=== PATIENT | female | born 1990 | race Caucasian/White ===

== ENCOUNTER → 2017-05-07 | Outpatient (CLI) | payer OTHER ==
[~2017-05-07] MED LIST: GADOBUTROL 10 ML VIAL IVP ONE; GLUCAGON,HUMAN RECOMBINANT 0.3 MG in SYRINGE 0.3 ML IVP ONE
== END ==
LOC: FIMAGING 08:15
PROVIDERS: ATTEND Internal Medicine Gastroenterology
DX: K52.89 Other specified noninfective gastroenteritis and colitis (principal)
CPT/HCPCS: A9585; J1610

== ENCOUNTER 2018-08-20 18:27 | Emergency (ER) | payer OTHER ==
[2018-08-20] MEDS ORDERED: NS 1,000 ML IV ONE ×2 (18:50→21:15)
[2018-08-20] MEDS ORDERED: ONDANSETRON 4 MG/2 ML VIAL IVP ONE (18:50)
--- NOTE | 2018-08-20 18:53 | EDPHY ---
H & P Smoking Status: Never smoked <PrashantNadrei S - Last Filed: 08/20/18 21:12> <YaneliLisa S - Last Filed: 08/20/18 22:10> Time Seen by Provider: 08/20/18 18:34 HPI/ROS: CHIEF COMPLAINT: Abdominal pelvic pain HISTORY OF PRESENT ILLNESS: Patient has had Crohn's disease since 9 years old. Her last big flare was just over a year ago when she was in [facility], she has since weaned herself off all medications. She feels like this is different than her Crohn's. She had her normal menstrual period yesterday and today, has been feeling more bloated and having more menstrual symptoms over the last couple months. This morning she felt abdominal pain and left side which has persisted. Does not feel crampy and in waves like her typical Crohn's. Not associated with vomiting, she does have about 10-15 episodes today of watery nonbloody diarrhea. She has some nausea. No urinary symptoms. REVIEW OF SYSTEMS: Eye: no change in vision ENT: no sore throat Cardiac: no chest pain or syncope Pulmonary: no cough or SOB Abdomen: HPI Musculoskeletal: no back pain Skin: no rash Neuro: no headache Constitutional: no fever : no urinary symptoms A comprehensive 10 point review of systems is otherwise negative aside from elements mentioned in the history of present illness. PAST MEDICAL HISTORY: Crohn's disease Social history: Here with her mom General Appearance: Alert and conversant, cooperative. Eyes: No scleral icterus. ENT, Mouth: Normal mucous membranes. Respiratory: Normal respiratory effort, breath sounds equal, lungs are clear to auscultation. Cardiovascular: Regular rate and rhythm. Gastrointestinal: Left lower quadrant tenderness greater than right, no rebound or guarding. No liver or right upper quadrant tenderness. Neurological: Alert, face symmetric, normal motor and sensory in extremities. Skin: Warm and dry, no rashes. Musculoskeletal: No peripheral edema. Psychiatric: Not agitated. Emergency Department course/MDM: Differential includes but not limited to appendicitis, ovarian cyst or torsion, UTI, bowel obstruction or Crohn's, infectious diarrhea, GI bleed. Plan for Zofran and IV fluids for nausea. Declined pain medication. Pelvic and appendiceal ultrasound. 1939: Normal WBC and negative test. Signed out to [place] with US pending. (Cerda,Andrei S) Constitutional: Initial Vital Signs Temperature (C) 36.8 C 08/20/18 18:32 Heart Rate 63 08/20/18 18:32 Respiratory Rate 16 08/20/18 18:32 Blood Pressure 124/77 H 08/20/18 18:32 O2 Sat (%) 96 08/20/18 18:32 O2 Delivery Mode Room Air Allergies/Adverse Reactions: cephalexin monohydrate [From Keflex] Allergy (Verified 07/08/13 09:11) codeine Allergy (Verified 07/08/13 09:10) sulfamethoxazole [From Bactrim] Allergy (Verified 08/20/18 18:30) trimethoprim [From Bactrim] Allergy (Verified 08/20/18 18:30) Home Medications: Medication Instructions Recorded Methotrexate 08/20/18 Stelara 08/20/18 Medical Decision Making <Andrei Cerda S - Last Filed: 08/20/18 21:12> - Diagnostics Imaging: Discussed imaging studies w/ pecan mallow dipper Radiologist <Lisa Groves S - Last Filed: 08/20/18 22:10> - Diagnostics Imaging Results: Imaging Impressions Abdomen Ultrasound 08/20/18 18:51 Impression: An abnormal appendix is not visualized. No definite secondary findings are seen to support a clinical diagnosis of acute appendicitis. Results called and discussed with Andrei Cerda M.D., on August 20, 2018 at 2055. Pelvic/Renal Ultrasound 08/20/18 18:51 Impression: Negative pelvic ultrasound with no source for right lower quadrant pain identified. Results called and discussed with Beckie Groves M.D. on 08/20/2018 at 20:55. ED Course/Re-evaluation: 2114: Ultrasound results discussed with the patient. She continues to have crampy be abdominal pain, especially in the left lower quadrant, associated with nausea. Abdominal exam exam reveals left lower quadrant tenderness, without peritoneal signs. I will give her another L of normal saline, Toradol and Phenergan IV. Discussed with patient the risks and benefits of CT scan, pt will defer for now, though she is concerned about the possibility of small- bowel obstruction. 2 way abdominal x-ray ordered. 10pm: feels much better, pain and nausea have resolved. Abd soft, minimal LLQ tenderness, no peritoneal signs. Xray d/w Dr. Lerma, mildly dilated small bowel , no SBO. Results discussed with the patient. Would like to go home. Abdominal pain precautions given. Strongly encouraged return in 12 hr for recheck and probable CT scan if symptoms persist. (Lisa Groves) Differential Diagnosis: Differential diagnosis includes though it is not limited to appendicitis, cholecystitis, diverticulitis, pyelonephritis, bowel perforation, small bowel obstruction. (Lisa Groves) - Data Points Laboratory Results: Laboratory Results 08/20/18 18:58 08/20/18 18:58 08/20/18 08/20/18 08/20/18 19:35 18:58 18:58 WBC RBC Hgb Hct MCV MCH MCHC RDW Plt Count MPV Neut % (Auto) Lymph % (Auto) [place] % (Auto) Eos % (Auto) Baso % (Auto) Nucleat RBC Rel Count Absolute Neuts (auto) Absolute Lymphs (auto) Absolute Monos (auto) Absolute Eos (auto) Absolute Basos (auto) Absolute Nucleated RBC Immature Gran % Immature Gran # Sodium 139 mEq/L mEq/L (135-145) Potassium 3.8 mEq/L mEq/L (3.5-5.2) Chloride 107 mEq/L mEq/L (97-110) Carbon Dioxide 21 mEq/l L mEq/l (22-31) Anion Gap 11 mEq/L mEq/L (6-14) BUN 9 mg/dL mg/dL (7-23) Creatinine 0.8 mg/dL mg/dL (0.6-1.0) Estimated GFR > 60 Glucose 109 mg/dL H mg/dL (70-100) Calcium 9.8 mg/dL mg/dL (8.5-10.4) Beta HCG, Qual NEGATIVE Urine Color YELLOW Urine Appearance CLEAR Urine pH 6.0 (5.0-7.5) Ur Specific [place] 1.015 (1.002-1.030) Urine Protein NEGATIVE (NEGATIVE) Urine Ketones NEGATIVE (NEGATIVE) Urine Blood NEGATIVE (NEGATIVE) Urine Nitrate NEGATIVE (NEGATIVE) Urine Bilirubin NEGATIVE (NEGATIVE) Urine Urobilinogen NEGATIVE EU EU (0.2-1.0) Ur Leukocyte Esterase NEGATIVE (NEGATIVE) Urine Glucose NEGATIVE (NEGATIVE) 08/20/18 18:58 WBC 8.83 10^3/uL 10^3/uL (3.80-9.50) RBC 4.44 10^6/uL 10^6/uL (4.18-5.33) Hgb 13.9 g/dL g/dL (12.6-16.3) Hct 40.3 % % (38.0-47.0) MCV 90.8 fL fL (81.5-99.8) MCH 31.3 pg pg (27.9-34.1) MCHC 34.5 g/dL g/dL (32.4-36.7) RDW 12.1 % % (11.5-15.2) Plt Count 353 10^3/uL 10^3/uL (150-400) MPV 9.7 fL fL (8.7-11.7) Neut % (Auto) 69.4 % % (39.3-74.2) Lymph % (Auto) 23.1 % % (15.0-45.0) [place] % (Auto) 6.2 % % (4.5-13.0) Eos % (Auto) 0.8 % % (0.6-7.6) Baso % (Auto) 0.2 % L % (0.3-1.7) Nucleat RBC Rel Count 0.0 % % (0.0-0.2) Absolute Neuts (auto) 6.12 10^3/uL 10^3/uL (1.70-6.50) Absolute Lymphs (auto) 2.04 10^3/uL 10^3/uL (1.00-3.00) Absolute Monos (auto) 0.55 10^3/uL 10^3/uL (0.30-0.80) Absolute Eos (auto) 0.07 10^3/uL 10^3/uL (0.03-0.40) Absolute Basos (auto) 0.02 10^3/uL 10^3/uL (0.02-0.10) Absolute Nucleated RBC 0.00 10^3/uL 10^3/uL (0-0.01) Immature Gran % 0.3 % % (0.0-1.1) Immature Gran # 0.03 10^3/uL 10^3/uL (0.00-0.10) Sodium Potassium Chloride Carbon Dioxide Anion Gap BUN Creatinine Estimated GFR Glucose Calcium Beta HCG, Qual Urine Color Urine Appearance Urine pH Ur Specific [place] Urine Protein Urine Ketones Urine Blood Urine Nitrate Urine Bilirubin Urine Urobilinogen Ur Leukocyte Esterase Urine Glucose Medications Given: Discontinued Medications Sodium Chloride (Ns) 1,000 mls @ 0 mls/hr IV EDNOW ONE; Wide Open PRN Reason: Protocol Stop: 08/20/18 18:51 Last Admin: 08/20/18 19:08 Dose: 1,000 mls Sodium Chloride (Ns) 1,000 mls @ 0 mls/hr IV EDNOW ONE; Wide Open PRN Reason: Protocol Stop: 08/20/18 21:16 Last Admin: 08/20/18 21:37 Dose: 1,000 mls Ketorolac Tromethamine (Toradol) 30 mg IVP EDNOW ONE Stop: 08/20/18 21:16 Last Admin: 08/20/18 21:36 Dose: 30 mg Ondansetron HCl (Zofran) 4 mg IVP EDNOW ONE Stop: 08/20/18 18:51 Last Admin: 08/20/18 19:14 Dose: 4 mg Promethazine HCl (Phenergan) 12.5 mg IVP EDNOW ONE Stop: 08/20/18 21:16 Last Admin: 08/20/18 21:37 Dose: 12.5 mg Departure <Andrei Cerda S - Last Filed: 08/20/18 21:12> <Lisa Groves S - Last Filed: 08/20/18 22:10> - Departure Disposition: Home, Routine, Self-Care Clinical Impression: Abdominal pain Qualifiers: Abdominal location: left lower quadrant Qualified Code(s): R10.32 - Left lower quadrant pain Diarrhea Qualifiers: Diarrhea type: presumed infectious Qualified Code(s): R19.7 - Diarrhea, unspecified Condition: Good Instructions: Acute Diarrhea (ED), Acute Abdominal Pain (ED) Additional Instructions: 1. Clear liquids for 24 hours. 2. Advance diet as tolerated. I suggest the BRAT diet to start: bananas, rice, applesauce and toast. 3. Return in 12-24 hours if pain persists. 4. Call Dr. Bhandari tomorrow to make an appointment. 5. If diarrhea continues, return a stool sample to the [facility] lab. 6. Zofran 1 tablet under the tongue every 6 hours as needed for nausea. Referrals: Han Bhandari MD [Medical Doctor] - As per Instructions
[2018-08-20 19:09] LABS: PLATELET COUNT 353 10^3/uL (150-400)
[2018-08-20] MEDS ORDERED: KETOROLAC 30 MG/1 ML SDV IVP ONE (21:15)
[2018-08-20] MEDS ORDERED: PROMETHAZINE HCL 25 MG/ML INJ IVP ONE (21:15)
[2018-08-20 22:05] VITALS: BP 110/70
[2018-08-20] MEDS ORDERED: ONDANSETRON 4MG PREPACK#2 BTL TAKEHOME ONE (22:06)
== END 2018-08-20 22:42 | disposition home or self-care (01) ==
DX: R10.2 Pelvic and perineal pain (principal); R19.7 Diarrhea, unspecified; E86.9 Volume depletion, unspecified
CPT/HCPCS: 96374; J1885; J2405; J2550

== ENCOUNTER → 2018-10-01 | Outpatient (CLI) | payer OTHER ==
[~2018-10-01] MED LIST changes: +GLUCAGON HCL 0.3 MG in SYRINGE 0.3 ML IVP ONE; -GLUCAGON,HUMAN RECOMBINANT 0.3 MG in SYRINGE 0.3 ML IVP ONE
== END ==
LOC: FIMAGING 14:40
PROVIDERS: ATTEND Internal Medicine Gastroenterology
DX: Z79.899 Other long term (current) drug therapy (principal); K50.00 Crohn's disease of small intestine without complications
CPT/HCPCS: A9585; J1610